=== PATIENT | male | born 1985 | race African-American/Black ===

== ENCOUNTER 2020-07-13 17:35 | Emergency (ER) | payer MEDICARE, SELFPAY ==
[2020-07-13 17:37] VITALS: BP 126/73; PULSE 108; RESP 17; TEMP 37.5; O2SAT 94
--- NOTE | 2020-07-13 17:44 | ED.BACK ---
HPI - Back Pain/Injury General Chief Complaint: Back Pain/Injury Stated Complaint: BACK PAIN Time Seen by Provider: 07/13/20 17:43 Source: patient Mode of arrival: ambulatory Limitations: no limitations History of Present Illness HPI Narrative: Patient is a 34-year-old male with a history of kidney transplant in 2011 in 2013, hypertension, chronic immunosuppression, cerebral palsy who presents for evaluation of back pain. Patient reports pain over the right flank as well as a sore in that area. Patient denies any fever or chills, but patient noted to be febrile in triage. Patient denies any chest pain, cough or shortness of breath. No nausea or vomiting. No urinary symptoms. Patient positive Dr. Oglesby, nephrology at [facility]. He is on mycophenolate immunosuppression. Related Data Home Medications Medication Instructions Recorded Confirmed amlodipine 07/13/20 lisinopril 07/13/20 mycophenolate sodium PO 07/13/20 prednisone 07/13/20 tacrolimus [Envarsus XR] PO 07/13/20 Allergies Allergy/AdvReac Type Severity Reaction Status Date / Time No Known Allergies Allergy Verified 07/13/20 17:35 Review of Systems Review of Systems: Narrative: CONSTITUTIONAL: Denies fever, chills, or sweats. CARDIOVASCULAR: Denies chest pain RESPIRATORY: Denies cough or dyspnea. GASTROINTESTINAL: Denies abdominal pain, nausea, vomiting, or diarrhea. GENITOURINARY: Denies dysuria or hematuria. SKIN: Denies rash or itching. MUSCULOSKELETAL: Reports right-sided back pain NEUROLOGIC: Denies headache, numbness, or weakness. [facility] Past Medical History Medical History (Updated 07/13/20 @ 18:14 by Blanca Andre MD) Hypertension Surgical History Surgical History (Updated 07/13/20 @ 18:12 by Blanca Andre MD) Kidney replaced by transplant Social History Social History (Updated 07/13/20 @ 18:13 by Blanca Andre MD) Smoking status: Never smoker Substance use: never Gender identity (if verbalized by the patient): Male Exam Narrative: Exam Narrative: GENERAL: Awake, alert, conversant HEAD: Normocephalic, atraumatic. EYES: PERRLA and EOMI. ENT: Nares clear, no rhinorrhea or epistaxis. Mucous membranes moist. NECK: Supple. CHEST: No respiratory distress, breathing even and non labored HEART: Tachycardic rate, sinus rhythm ABDOMEN:Non distended, non tender Thorax: 3 cm x 2 cm abscess with areas of fluctuance and induration to the right flank. Tender to palpation. No midline tenderness. No erythema. EXTREMITIES: Normal range of motion. No edema. SKIN: Warm, dry, no rash. NEURO:No focal deficits. Alert and oriented x3 Course Vital Signs Vital signs: Vital Signs Temperature 37.5 C 07/13/20 17:37 Pulse Rate 108 H 07/13/20 17:37 Respiratory Rate 17 07/13/20 17:37 Blood Pressure 126/73 07/13/20 17:37 Pulse Oximetry 94 07/13/20 17:37 Temperature 37.5 C 07/13/20 17:37 Pulse Rate 104 H 07/13/20 18:19 Respiratory Rate 28 H 07/13/20 18:19 Blood Pressure 136/90 07/13/20 18:19 Pulse Oximetry 98 07/13/20 18:19 Procedures Abscess I/D back: Date of Incision: 07/13/20 Time of Incision: 18:13 Side (if applicable): right Local Anesthetic: lidocaine 1% Amount of anesthesia used (mL): 4 Technique: incised with #11 blade Amount of fluid expressed (mL): 10 Irrigation: Yes Packing used?: none I&D Results: Pus MDM - Back Pain/Injury MDM Narrative Medical decision making narrative: Patient presented for evaluation of sore to right flank. At the time of assessment, patient is mildly tachycardic. Patient is borderline febrile, no true fever. No hypotension. Patient without any other abdominal pain, chest pain, shortness of breath. Patient states he does not feel febrile and has temperature checks at work and did not have a temperature this morning. Given patient is immunosuppressed, I wanted to verify the
[2020-07-13 17:49] VITALS: BP 126/74; PULSE 107; RESP 22; O2SAT 97
--- NOTE | 2020-07-13 17:52 | PC.NURSE ---
erp dr junior at bedside for assessment
[2020-07-13 18:19] VITALS: BP 136/90; PULSE 104; RESP 28; O2SAT 98
[2020-07-13] MEDS: ACETAMINOPHEN 500 MG TABLET 1000 MG PO (18:21)
[2020-07-13] MEDS: SODIUM CHLORIDE 0.9% IV 1,000 ML 999 ML IV CONT ×2 (18:22→18:23)
[2020-07-13 18:38] LABS: Basophils Percent Auto 0.3 % (0.2-1.2); Eosinophils Absolute Auto 0.3 K/mm3 (0-0.3); Eosinophils Percent Auto 4.4 % (0-4.4); Hematocrit 44.3 % (42.0-52.0); Hemoglobin 14.9 g/dL (14.0-18.0); Immature Granulocyte Absolute 0.05 K/mm3 (0.00-0.031); Immature Granulocyte Percent A 0.7 % (0-0.5); Lymphocytes Absolute Auto 1.08 K/mm3 (0.9-3.2); Mean Corpuscular HGB Conc 33.6 g/dl (32-36); Mean Corpuscular Hemoglobin 29.8 pg (26-34); Mean Corpuscular Volume 88.6 fl (80-100); Mean Platelet Volume 9.1 fl (7.4-10.4); Monocytes Absolute Auto 1.2 K/mm3 (0.1-0.6); Monocytes Percent Auto 15.3 % (2.6-8.5); Neutrophils Percent Auto 65.3 % (45.5-73.1); Platelet Count Result 270 k/mm3 (150-375); Red Cell Distribution Width 13.2 % (11.5-14.5); White Blood Count 7.7 K/mm3 (4.5-10.0)
[2020-07-13 18:50] LABS: Lactic Acid Reflex 0.8 mmol/L (0.7-2.1)
[2020-07-13 18:53] LABS: Anion Gap 6 mmol/L (8-16); Blood Urea Nitrogen 16 mg/dL (9-20); CRP 2.9 mg/dL (<1.0); Calcium 8.9 mg/dL (8.4-10.2); Carbon Dioxide 23 mmol/L (22-30); Chloride 107 mmol/L (98-107); Estimated CRCL calculation 72 ml/min; Estimated Glomerular Filt Rate > 60; Glucose 102 mg/dL (75-110); Potassium 3.9 mmol/L (3.4-5.0); Sodium 136 mmol/L (137-145)
[2020-07-13 19:06] LABS: Erythrocyte Sedimentation Rate 20 mm/hr (0-20)
[2020-07-13] MEDS: CEPHALEXIN 500 MG CAPSULE PO (19:16)
[2020-07-13 19:22] VITALS: BP 145/88; PULSE 91; RESP 18; TEMP 37.4; O2SAT 99
== END 2020-07-13 19:23 | disposition home or self-care (01) ==
PROVIDERS: Emergency Provider Emergency Medicine; PCP Internal Medicine Endocrinology, Diabetes & Metabolism
DX: L02.211 Cutaneous abscess of abdominal wall (principal); Z94.0 Kidney transplant status; I10 Essential (primary) hypertension; G80.9 Cerebral palsy, unspecified
CPT/HCPCS: 10060; 36415; 80048; 83605; 85025; 85652; 86140; 87040; 96360; 99283; A9270; J7030